=== PATIENT | female | born 1955 | race Caucasian/White ===

== ENCOUNTER → 2017-07-22 | Outpatient (CLI) | payer MEDICARE, OTHER ==
[~2017-07-22] MED LIST: BUPIVACAINE MPF 0.25% 10 ML VIAL. ONE; DEXAMETHASONE SOD PHOS 4 MG/ML VIAL ONE; IV NORMAL SALINE 250ML 250 ML ONE; LIDOCAINE (700MG/PATCH) PATCH. ONE; LIDOCAINE 1% PF 30 ML VIAL. ONE; MIDAZOLAM HCL PF 2 MG/2 ML VIAL. ONE
== END | disposition home or self-care (01) ==
LOC: SURG 10:52
PROVIDERS: ATTEND Anesthesiology
DX: M47.814 Spondylosis without myelopathy or radiculopathy, thoracic region (principal); J45.909 Unspecified asthma, uncomplicated; M19.91 Primary osteoarthritis, unspecified site; E11.22 Type 2 diabetes mellitus with diabetic chronic kidney disease; N18.9 Chronic kidney disease, unspecified; E07.9 Disorder of thyroid, unspecified; Z90.710 Acquired absence of both cervix and uterus; Z88.6 Allergy status to analgesic agent; Z88.1 Allergy status to other antibiotic agents
CPT/HCPCS: 64633; 64634; 82947; J1100; J2001; J2250; J3490; J7050; 64636

== ENCOUNTER → 2017-09-11 | Outpatient (CLI) | payer MEDICARE, OTHER ==
[~2017-09-11] MED LIST changes: +0.9 % SODIUM CHLORIDE 10 ML VIAL ONE; -BUPIVACAINE MPF 0.25% 10 ML VIAL. ONE; -DEXAMETHASONE SOD PHOS 4 MG/ML VIAL ONE; +IOHEXOL 300 MG/ML 50 ML VIAL. ONE; -IV NORMAL SALINE 250ML 250 ML ONE; -LIDOCAINE (700MG/PATCH) PATCH. ONE; -MIDAZOLAM HCL PF 2 MG/2 ML VIAL. ONE; +methylPREDNISolone ACETATE 80 MG/ML VIAL. ONE
== END | disposition home or self-care (01) ==
LOC: SURG 10:49
PROVIDERS: ATTEND Anesthesiology Pain Medicine
DX: M54.14 Radiculopathy, thoracic region (principal)
CPT/HCPCS: 62321; J1040; J2001; Q9967

== ENCOUNTER → 2017-10-23 | Outpatient (CLI) | payer MEDICARE, OTHER | END | disposition home or self-care (01) | LOC: SURG 10:12 | PROVIDERS: ATTEND Anesthesiology Pain Medicine | DX: M47.894 Other spondylosis, thoracic region (principal); R73.09 Other abnormal glucose | CPT/HCPCS: 82947; 99214 ==

== ENCOUNTER → 2017-12-19 | Outpatient (CLI) | payer MEDICARE, OTHER | END | disposition home or self-care (01) | LOC: SURG 08:57 | PROVIDERS: ATTEND Anesthesiology Pain Medicine | DX: M47.24 Other spondylosis with radiculopathy, thoracic region (principal) | CPT/HCPCS: 62321; J1040; J2001; Q9967 ==

== ENCOUNTER → 2018-01-29 | Day surgery (SDC) | payer MEDICARE, OTHER ==
[~2018-01-29] MED LIST changes: -0.9 % SODIUM CHLORIDE 10 ML VIAL ONE; +ALBU18HF IH; +ALBUTEROL SULFATE 2.5 MG/3 ML NEBU. NEB PRN; +ALEN70TA5 PO; +ALPR0.5T PO; +AMIT25TA PO; +ASPI81TA50 PO; +ATOR20TA58 PO; +ATROPINE 0.5 MG/5 ML DISP.SYRIN. IV PRN; +BUDE10.2 IH; +CETI10TA16 PO; +FLUT10.6 IH; +FLUT16SP21 NS; +GLIP10TA13 PO; +INSU100I17 SQ; +INSU100I32 SQ; -IOHEXOL 300 MG/ML 50 ML VIAL. ONE; +IV RINGERS SOLUTION,LACTATED 1,000 ML IV SCH; +LEVO25TA4 PO; -LIDOCAINE 1% PF 30 ML VIAL. ONE; +LIDOCAINE 2% PF Vial for OR 5 ML VIAL. ONE; +MIDAZOLAM HCL PF 2 MG/2 ML VIAL. IV ONE; +MONT10TA6 PO; +NALOXONE 0.4 MG/ML VIAL. IV PRN; +ONDANSETRON PF 4 MG/2 ML VIAL. IV PRN; +PROPOFOL 20 ML IV ONE; +SUMA100T4 PO; +diphenhydrAMINE 50 MG/ML VIAL IV PRN; -methylPREDNISolone ACETATE 80 MG/ML VIAL. ONE
[2018-01-29 09:05] VITALS: BP 132/74
== END | disposition home or self-care (01) ==
LOC: SURG 07:24
PROVIDERS: ATTEND Internal Medicine Gastroenterology
DX: K29.50 Unspecified chronic gastritis without bleeding (principal); K21.9 Gastro-esophageal reflux disease without esophagitis; G47.33 Obstructive sleep apnea (adult) (pediatric); E11.9 Type 2 diabetes mellitus without complications; J45.909 Unspecified asthma, uncomplicated; E78.00 Pure hypercholesterolemia, unspecified; M19.90 Unspecified osteoarthritis, unspecified site; Z88.1 Allergy status to other antibiotic agents; Z88.5 Allergy status to narcotic agent; Z79.899 Other long term (current) drug therapy; Z79.82 Long term (current) use of aspirin; Z90.5 Acquired absence of kidney; Z90.710 Acquired absence of both cervix and uterus; Z98.890 Other specified postprocedural states
CPT/HCPCS: 43239; 82947; J2704; J7120; 43235; J2001

== ENCOUNTER → 2018-02-13 | Outpatient (CLI) | payer MEDICARE, OTHER ==
[2018-01-29 09:05] VITALS: BP 132/74
[~2018-02-13] MED LIST changes: -ALBU18HF IH; -ALBUTEROL SULFATE 2.5 MG/3 ML NEBU. NEB PRN; -ALPR0.5T PO; -AMIT25TA PO; -ASPI81TA50 PO; -ATOR20TA58 PO; -ATROPINE 0.5 MG/5 ML DISP.SYRIN. IV PRN; -FLUT16SP21 NS; -INSU100I32 SQ; -IV RINGERS SOLUTION,LACTATED 1,000 ML IV SCH; -LIDOCAINE 2% PF Vial for OR 5 ML VIAL. ONE; -MIDAZOLAM HCL PF 2 MG/2 ML VIAL. IV ONE; -NALOXONE 0.4 MG/ML VIAL. IV PRN; -ONDANSETRON PF 4 MG/2 ML VIAL. IV PRN; -PROPOFOL 20 ML IV ONE; -SUMA100T4 PO; -diphenhydrAMINE 50 MG/ML VIAL IV PRN
--- NOTE | 2018-02-13 10:42 | RAD ---
Complete abdominal ultrasound 02/13/2018 7:59 AM Clinical History: Intermittent abdominal and epigastric pain x3 weeks . History of right nephrectomy. Technique: Ultrasound examination of the abdomen was performed, and multiple static images were submitted for review. Comparison: None available Findings: Visualized portions of the pancreas are unremarkable. Visualized portions of the aorta and IVC are unremarkable. The gallbladder is partially obscured. Visualized gallbladder demonstrates no evidence of wall thickening, stones, or sludge. The common bile duct is within normal limits measuring 4 mm in diameter. The liver is diffusely echogenic suggesting hepatic steatosis. The liver is top normal in diameter between 17 and 18 cm. Liver is otherwise unremarkable. The left kidney is normal in appearance measuring 12.8 cm in length. Spleen is unremarkable in appearance measuring 9.4 cm in length. Impression: 1. Hepatic steatosis and borderline hepatomegaly. 2. No sonographic evidence of acute intracranial abnormality is identified. Electronically signed by: Ezekiel Mcnair MD (02/13/2018 10:39 AM) [id number]
--- NOTE | 2018-02-13 12:53 | RAD ---
EXAM: Nuclear gastric emptying scan. HISTORY: Epigastric pain and nausea. COMPARISON: None. TECHNIQUE: Serial static images were obtained over the stomach following oral administration of 2.1 mCi of 99m-Tc sulfur colloid. FINDINGS: The stomach empties into the small bowel without evidence of reflux in the area of the esophagus. The estimated time for half emptying of gastric contents, i.e. 'gastric emptying time' is 916 minutes (normal is 66 +/- 22 minutes). IMPRESSION: Severely delayed gastric emptying. Correlate for gastroparesis or outlet obstruction. Electronically signed by: Grace Owens MD (02/13/2018 12:50 PM) [id number]
== END | disposition home or self-care (01) ==
LOC: US 07:34
PROVIDERS: ATTEND Internal Medicine Gastroenterology
DX: K76.0 Fatty (change of) liver, not elsewhere classified (principal); K30 Functional dyspepsia; E11.22 Type 2 diabetes mellitus with diabetic chronic kidney disease; N18.9 Chronic kidney disease, unspecified; E78.00 Pure hypercholesterolemia, unspecified
CPT/HCPCS: 76700; 78264; A9541

== ENCOUNTER → 2018-02-26 | Day surgery (SDC) | payer MEDICARE, OTHER ==
[~2018-02-26] MED LIST changes: +ALBU18HF IH; +ALPR0.5T PO; +AMIT25TA PO; +ASPI81TA50 PO; +ATOR20TA58 PO; +FLUT16SP21 NS; +INSU100I32 SQ; +LIDOCAINE 1% PF 2 ML VIAL. ID PRN; +PROPOFOL 10,000 MCG/ML (20ML) VIAL IV ONE; +PROPOFOL 40 ML IV ONE; +SUMA100T4 PO
[2018-02-26] MEDS: IV RINGERS SOLUTION,LACTATED 1,000 ML IV SCH (10:33)
[2018-02-26 13:07] VITALS: BP 129/61
== END ==
LOC: SURG 09:44
PROVIDERS: ATTEND Internal Medicine Gastroenterology
DX: K59.00 Constipation, unspecified (principal); K57.30 Diverticulosis of large intestine without perforation or abscess without bleeding; K21.9 Gastro-esophageal reflux disease without esophagitis; E11.9 Type 2 diabetes mellitus without complications; E78.00 Pure hypercholesterolemia, unspecified; J45.909 Unspecified asthma, uncomplicated; G47.33 Obstructive sleep apnea (adult) (pediatric); E66.9 Obesity, unspecified; Z68.39 Body mass index [BMI] 39.0-39.9, adult; Z88.6 Allergy status to analgesic agent; Z88.1 Allergy status to other antibiotic agents; Z88.8 Allergy status to other drugs, medicaments and biological substances; Z90.710 Acquired absence of both cervix and uterus; Z98.890 Other specified postprocedural states; Z90.5 Acquired absence of kidney
CPT/HCPCS: 43202; 45378; 82947; J2704; J7120

== ENCOUNTER → 2018-11-17 | Day surgery (SDC) | payer MEDICARE, OTHER ==
[~2018-11-17] MED LIST changes: -ALBU18HF IH; +ALBU2.5V8 IH; +ALBUTEROL SULFATE 2.5 MG/3 ML NEBU. NEB PRN; -ALEN70TA5 PO; +ALEN70TA6 PO; +ATOR40TA59 PO; +ATROPINE 0.5 MG/5 ML DISP.SYRIN. IV PRN; +CELE200C PO; +CHOL10003 PO; +DICL100G18 TP; +DULA0.75 SQ; +ESOM40CA PO; +ESTR0.5T PO; +GLIP5TAB10 PO; +IV RINGERS SOLUTION,LACTATED 1,000 ML IV SCH; -LIDOCAINE 1% PF 2 ML VIAL. ID PRN; +LIDOCAINE 2% PF Vial for OR 5 ML VIAL. ONE; +LIDODERM PATCH 5% TP; +LUBI8CAP4 PO; -MONT10TA6 PO; +MONT10TA80 PO; +MULT1TAB52 PO; +NALOXONE 0.4 MG/ML VIAL. IV PRN; +NAPR220C4 PO; +ONDA4TAB7 PO; +ONDANSETRON PF 4 MG/2 ML VIAL. IV PRN; -PROPOFOL 10,000 MCG/ML (20ML) VIAL IV ONE; +PROPOFOL 20 ML IV ONE; -PROPOFOL 40 ML IV ONE; +ZOLP5TAB PO; +diphenhydrAMINE 50 MG/ML VIAL IV PRN
[2018-11-17 12:56] VITALS: BP 128/75
== END | disposition home or self-care (01) ==
LOC: SURG 10:53
PROVIDERS: ATTEND Internal Medicine Gastroenterology
DX: K22.2 Esophageal obstruction (principal); K31.89 Other diseases of stomach and duodenum; K21.9 Gastro-esophageal reflux disease without esophagitis; E78.00 Pure hypercholesterolemia, unspecified; J45.909 Unspecified asthma, uncomplicated; Z88.5 Allergy status to narcotic agent; Z88.1 Allergy status to other antibiotic agents; Z91.018 Allergy to other foods; Z88.8 Allergy status to other drugs, medicaments and biological substances; Z79.899 Other long term (current) drug therapy; Z79.82 Long term (current) use of aspirin; Z90.5 Acquired absence of kidney; Z90.710 Acquired absence of both cervix and uterus; Z98.890 Other specified postprocedural states; E11.43 Type 2 diabetes mellitus with diabetic autonomic (poly)neuropathy; K31.84 Gastroparesis; Z79.84 Long term (current) use of oral hypoglycemic drugs
CPT/HCPCS: 43239; 82947; J2704; J7120; J2001

== ENCOUNTER → 2018-11-26 | Outpatient (CLI) | payer MEDICARE, OTHER ==
[2018-11-17 12:56] VITALS: BP 128/75
[~2018-11-26] MED LIST changes: -ALBUTEROL SULFATE 2.5 MG/3 ML NEBU. NEB PRN; -ATOR40TA59 PO; -ATROPINE 0.5 MG/5 ML DISP.SYRIN. IV PRN; -CELE200C PO; -CHOL10003 PO; -DICL100G18 TP; -ESOM40CA PO; -ESTR0.5T PO; -GLIP5TAB10 PO; -IV RINGERS SOLUTION,LACTATED 1,000 ML IV SCH; -LIDOCAINE 2% PF Vial for OR 5 ML VIAL. ONE; -LIDODERM PATCH 5% TP; -LUBI8CAP4 PO; +MONT10TA6 PO; -MONT10TA80 PO; -MULT1TAB52 PO; -NALOXONE 0.4 MG/ML VIAL. IV PRN; -NAPR220C4 PO; -ONDANSETRON PF 4 MG/2 ML VIAL. IV PRN; -PROPOFOL 20 ML IV ONE; -diphenhydrAMINE 50 MG/ML VIAL IV PRN
== END | disposition home or self-care (01) ==
LOC: SURG 09:41
PROVIDERS: ATTEND Anesthesiology Pain Medicine
DX: M47.24 Other spondylosis with radiculopathy, thoracic region (principal); M19.90 Unspecified osteoarthritis, unspecified site; I10 Essential (primary) hypertension; E78.00 Pure hypercholesterolemia, unspecified; Z90.710 Acquired absence of both cervix and uterus
CPT/HCPCS: 99213

== ENCOUNTER → 2018-12-11 | Outpatient (CLI) | payer MEDICARE, OTHER ==
[2018-11-17 12:56] VITALS: BP 128/75
--- NOTE | 2018-12-11 14:17 | RAD ---
EXAM: Thoracic spine CT without contrast. HISTORY: Thoracic radiculopathy. TECHNIQUE: Computed tomographic images of the thoracic spine were obtained without contrast. *One or more of the following individualized dose reduction techniques were utilized for this examination: 1. Automated exposure control. 2. Adjustment of the mA and/or kV according to patient size. 3. Use of iterative reconstruction technique. COMPARISON: MRI dated 09/14/2018. FINDINGS: There is mild thoracic dextrocurvature centered at the mid thoracic levels. There is no significant listhesis. The thoracic vertebral bodies are normal in height. There is degenerative endplate remodeling with right anterior osteophytosis at the majority of the mid and lower thoracic vertebral levels. There are few tiny bone islands. There is no suspicious lytic or sclerotic osseous lesion. There are hypoplastic T12 ribs, a normal variant. There are disc bulges at multiple levels. There are few disc protrusions, described below. There is degenerative endplate remodeling with disc space narrowing and Schmorl's node formation at C5-C6, not formally assessed on this exam. There is suspected mild left foraminal stenosis at this level. At T5-T6, there is a minimal shallow left paracentral disc protrusion. There is no stenosis. At T11-T12, there is a posterior central to left paracentral disc protrusion and osteophyte complex with slight inferior extrusion. There is no stenosis. At T12-L1, there is a left paracentral disc protrusion and osteophyte complex. There is no stenosis. IMPRESSION: 1. Multilevel degenerative change within the thoracic spine, described in detail above. There is no significant foraminal or central canal stenosis. 2. No acute finding. Electronically signed by: Grace Owens MD (12/11/2018 2:15 PM) [place] [id number]
== END | disposition home or self-care (01) ==
LOC: CT 11:51
PROVIDERS: ATTEND Neurological Surgery
DX: M47.24 Other spondylosis with radiculopathy, thoracic region (principal); M25.78 Osteophyte, vertebrae; M51.25 Other intervertebral disc displacement, thoracolumbar region; M48.02 Spinal stenosis, cervical region
CPT/HCPCS: 72128

== ENCOUNTER → 2019-01-01 | Outpatient (CLI) | payer MEDICARE, OTHER ==
[2018-11-17 12:56] VITALS: BP 128/75
== END | disposition home or self-care (01) ==
LOC: SURG 11:41
PROVIDERS: ATTEND Anesthesiology Pain Medicine
DX: M47.814 Spondylosis without myelopathy or radiculopathy, thoracic region (principal); M19.90 Unspecified osteoarthritis, unspecified site; I10 Essential (primary) hypertension; E78.00 Pure hypercholesterolemia, unspecified; Z90.710 Acquired absence of both cervix and uterus; Z79.899 Other long term (current) drug therapy
CPT/HCPCS: 99213

== ENCOUNTER 2019-03-17 20:53 | Inpatient (IN) | payer MEDICARE, OTHER ==
[~2019-03-17] VITALS: Ht 149.9 cm; Wt 83.9 kg
[~2019-03-17 20:53] MED LIST changes: -MONT10TA6 PO; +MONT10TA80 PO
[2019-03-17] MEDS ORDERED: IV RINGERS SOLUTION,LACTATED 1,000 ML IV SCH (21:36)
--- NOTE | 2019-03-17 21:36 | ED.ADGEN ---
Past History Past Medical History: Anxiety, Arthritis, Constipation, Diverticulitis, Diabetes, High Cholesterol, Hypertension, Other Past Medical History Chronic Pain Past Surgical History: Lumbar Laminectomy, Other Adult General Chief Complaint Chief Complaint ".. I was here earlier.. and I am no better.. I called and nursing told be to come back in .. .if I was not feeling better...and I am not..." HPI HPI 63 Patient is a 64 year old female who presents with above hx and continue abdomen pain. Patient denies any travel. Patient denies any specific ill contacts. Patient denies any intake bad food. Patient denies any change in her medications. Patient pain is generalized throughout her abdomen. Patient states she's has been passing gas and stool. Patient rates her pain as severe. She does seems to make the pain better. Patient previously had completed CT of abdomen no surgical pathology noted. On earlier ED visit was noted to have increased stool throughout her colon. Patient does have findings of diverticulitis but noted diverticulitis. She does have degenerative joint changes in the spine and joints She does have findings of subpleural linear reticular scarring or atelectasis in her lungs. She does have findings of previous lumbar fixation. Patient normally follows Dr. Gloria.. Patient has not remained on a clear fluid diet. Review of Systems Review of Systems Constitutional: Denies fever or chills [] Eyes: Denies change in visual acuity, redness, or eye pain [] HENT: Denies nasal congestion or sore throat [] Respiratory: Denies cough or shortness of breath [] Cardiovascular: No additional information not addressed in HPI [] GI: Complaints of severe generalized abdominal pain., nausea. Denies, vomiting, bloody stools or diarrhea [] : Denies dysuria or hematuria [] Musculoskeletal: Has chronic back pain and joint pain [] Integument: Denies rash or skin lesions [] Neurologic: Denies headache, focal weakness or sensory changes [] Endocrine: Denies polyuria or polydipsia [] All other systems were reviewed and found to be within normal limits, except as documented in this note. Family History Family History Diabetes hypertension noncontributory Current Medications Current Medications Current Medications Medications (Trade) Dose Ordered Sig/Jackson Start Time Stop Time Status Last Admin Dose Admin Famotidine (Pepcid Vial) 20 mg 1X ONCE 03/17/19 21:45 03/17/19 21:46 DC 03/17/19 21:53 20 MG Fentanyl Citrate (Fentanyl 2ml Vial) 100 mcg 1X ONCE 03/17/19 23:15 03/17/19 23:43 DC 03/17/19 23:16 100 MCG Lactated Ringer's 1,000 ml @ 1,000 mls/hr Q1H 03/17/19 21:36 03/17/19 22:35 DC 03/17/19 21:52 1,000 MLS/HR Magnesium Hydroxide (Milk Of Magnesia) 2,400 mg 1X ONCE 03/17/19 21:45 03/17/19 21:46 DC 03/17/19 21:53 2,400 MG Ondansetron HCl (Zofran) 8 mg 1X ONCE 03/17/19 21:45 03/17/19 21:46 DC 03/17/19 21:53 8 MG Allergies Allergies Allergies Coded Allergies Type Severity Reaction Last Updated Verified erythromycin base Allergy Intermediate 03/17/19 Yes hydromorphone Allergy Unknown 03/17/19 Yes morphine Allergy Unknown 03/17/19 Yes Physical Exam Physical Exam Constitutional: Reports she is in acute distress, non-toxic appearance. [] HENT: Normocephalic, atraumatic, bilateral external ears normal, oropharynx mois t, no oral exudates, nose normal. [] Eyes: PERRLA, EOMI, conjunctiva normal, no discharge. [] Neck: Normal range of motion, no tenderness, supple, no stridor. [] Cardiovascular: Bradycardia Heart rate regular rhythm, no murmur [] Lungs & Thorax: Bilateral breath sounds equal apexes with basilar crackles on auscultation [] Abdomen: Bowel sounds normal, soft, complaints of generalized tenderness, no ma sses, no pulsatile masses. No true localization on rebound. Morbid obesity. Distended abd. Skin: Warm, dry, no erythema, no rash. [] Back: No tenderness, no CVA tenderness. [] Old surgery scar Extremities: No tenderness, no cyanosis, no clubbing, ROM intact, ankle edema. [] No psoas sign Neurologic: Alert and oriented X 3, normal motor function, normal sensory function, no focal deficits noted. [] Psychologic: Affect anxious, judgement normal, mood depressed Current Patient Data Vital Signs Vital Signs Date Time Temp Pulse Resp B/P (MAP) Pulse Ox O2 Delivery O2 Flow Rate FiO2 03/17/19 23:16 24 98 Room Air 03/17/19 21:00 97.9 65 Lab Results Laboratory Tests Test 03/17/19 21:12 03/17/19 21:50 White Blood Count 11.1 x10^3/uL (4.0-11.0) H Red Blood Count 4.98 x10^6/uL (3.50-5.40) Hemoglobin 14.4 g/dL (12.0-15.5) Hematocrit 45.0 % (36.0-47.0) Mean Corpuscular Volume 90 fL (79-100) Mean Corpuscular Hemoglobin 29 pg (25-35) Mean Corpuscular Hemoglobin Concent 32 g/dL (31-37) Red Cell Distribution Width 13.8 % (11.5-14.5) Platelet Count 220 x10^3/uL (140-400) Neutrophils (%) (Auto) 66 % (31-73) Lymphocytes (%) (Auto) 24 % (24-48) Monocytes (%) (Auto) 7 % (0-9) Eosinophils (%) (Auto) 2 % (0-3) Basophils (%) (Auto) 1 % (0-3) Neutrophils # (Auto) 7.3 x10^3uL (1.8-7.7) Lymphocytes # (Auto) 2.7 x10^3/uL (1.0-4.8) Monocytes # (Auto) 0.7 x10^3/uL (0.0-1.1) Eosinophils # (Auto) 0.2 x10^3/uL (0.0-0.7) Basophils # (Auto) 0.1 x10^3/uL (0.0-0.2) Erythrocyte Sedimentation Rate 25 (0-25) Troponin I Quantitative < 0.017 ng/mL (0-0.055) Urine Collection Type Unknown Urine Color [place] Urine Clarity Hazy Urine pH 6.5 Urine Specific [place] 1.010 Urine Protein Neg (NEG-TRACE) Urine Glucose (UA) Neg mg/dL (NEG) Urine Ketones (Stick) Neg mg/dL (NEG) Urine Blood Neg (NEG) Urine Nitrite Neg (NEG) Urine Bilirubin Neg (NEG) Urine Urobilinogen Dipstick 0.2 mg/dL (0.2 mg/dL) Urine Leukocyte Esterase Neg (NEG) Urine RBC 0 /HPF (0-2) Urine WBC 0 /HPF (0-4) Urine Squamous Epithelial Cells Occ /LPF Urine Bacteria 0 /HPF (0-FEW) Urine Opiates Screen Neg (NEG) Urine Methadone Screen Neg (NEG) Urine Barbiturates Neg (NEG) Urine Phencyclidine Screen Neg (NEG) Urine Amphetamine/Methamphetamine Neg (NEG) Urine Benzodiazepines Screen Neg (NEG) Urine Cocaine Screen Neg (NEG) Urine Cannabinoids Screen Neg (NEG) Urine Ethyl Alcohol Neg (NEG) EKG EKG My interpretation EKG shows sinus rhythm at 64 bpm. No specific findings of acute STEMI with contralateral changes.[] Radiology/Procedures Radiology/Procedures I interpretation acute abdomen film shows[] increased stool throughout the colon. Does have residual contrast. There are findings of previous laminectomy. No free air under the diaphragm. Course & Med Decision Making Course & Med Decision Making Pertinent Labs and Imaging studies reviewed. (See chart for details) Patient admitted for further evaluation since she's been in the ED twice in less than 12 hours. Reports no improvement of her overall pain. Do suspect part of her pain is due to constipation. There is possibility of a missed surgical e tiology, she does have findings of diverticular disease but no findings of diverticulitis. Patient does have findings of degenerative joint changes and spinal stenosis. Has pulmonary linear reticular scarring and atelectasis. All of these could contribute to her abdomen pain complaints. Will keep pt. on clear fluid diet. Admission to Dr. Ham for further eval. and tx. [] Final Impression Final Impression 1. Abdomen pain[] ( Second visit to ED in less than 12 hrs.) 2. Leukocytosis 11.1 3. Constipation 4. Morbid Obesity 5. DM glu 120 Dragon Disclaimer Dragon Disclaimer This electronic medical record was generated, in whole or in part, using a voice recognition dictation system. Discharge Summary Visit Information Final Diagnosis Problems Medical Problems: (1) Pain in the abdomen Status: Acute Brief Hospital Course Allergies Allergies Coded Allergies Type Severity Reaction Last Updated Verified erythromycin base Allergy Intermediate 03/17/19 Yes hydromorphone Allergy Unknown 03/17/19 Yes morphine Allergy Unknown 03/17/19 Yes Vital Signs Vital Signs Date Time Temp Pulse Resp B/P (MAP) Pulse Ox O2 Delivery O2 Flow Rate FiO2 03/17/19 23:16 24 98 Room Air 03/17/19 21:00 97.9 65 Lab Results Laboratory Tests Test 03/17/19 21:12 03/17/19 21:50 White Blood Count 11.1 x10^3/uL (4.0-11.0) Red Blood Count 4.98 x10^6/uL (3.50-5.40) Hemoglobin 14.4 g/dL (12.0-15.5) Hematocrit 45.0 % (36.0-47.0) Mean Corpuscular Volume 90 fL (79-100) Mean Corpuscular Hemoglobin 29 pg (25-35) Mean Corpuscular Hemoglobin Concent 32 g/dL (31-37) Red Cell Distribution Width 13.8 % (11.5-14.5) Platelet Count 220 x10^3/uL (140-400) Neutrophils (%) (Auto) 66 % (31-73) Lymphocytes (%) (Auto) 24 % (24-48) Monocytes (%) (Auto) 7 % (0-9) Eosinophils (%) (Auto) 2 % (0-3) Basophils (%) (Auto) 1 % (0-3) Neutrophils # (Auto) 7.3 x10^3uL (1.8-7.7) Lymphocytes # (Auto) 2.7 x10^3/uL (1.0-4.8) Monocytes # (Auto) 0.7 x10^3/uL (0.0-1.1) Eosinophils # (Auto) 0.2 x10^3/uL (0.0-0.7) Basophils # (Auto) 0.1 x10^3/uL (0.0-0.2) Erythrocyte Sedimentation Rate 25 (0-25) Troponin I Quantitative < 0.017 ng/mL (0-0.055) Urine Collection Type Unknown Urine Color Marixa Urine Clarity Hazy Urine pH 6.5 Urine Specific [place] 1.010 Urine Protein Neg (NEG-TRACE) Urine Glucose (UA) Neg mg/dL (NEG) Urine Ketones (Stick) Neg mg/dL (NEG) Urine Blood Neg (NEG) Urine Nitrite Neg (NEG) Urine Bilirubin Neg (NEG) Urine Urobilinogen Dipstick 0.2 mg/dL (0.2 mg/dL) Urine Leukocyte Esterase Neg (NEG) Urine RBC 0 /HPF (0-2) Urine WBC 0 /HPF (0-4) Urine Squamous Epithelial Cells Occ /LPF Urine Bacteria 0 /HPF (0-FEW) Urine Opiates Screen Neg (NEG) Urine Methadone Screen Neg (NEG) Urine Barbiturates Neg (NEG) Urine Phencyclidine Screen Neg (NEG) Urine Amphetamine/Methamphetamine Neg (NEG) Urine Benzodiazepines Screen Neg (NEG) Urine Cocaine Screen Neg (NEG) Urine Cannabinoids Screen Neg (NEG) Urine Ethyl Alcohol Neg (NEG) Brief Hospital Course Ms. Lilly is a 64 old female who presented with abdomen pain that has not resolved with out pt. management. Admitted Dr. Ham. Discharge Information Condition at Discharge: Stable Dischare Medications Current Medications Lactated Ringer's 1,000 ml @ 1,000 mls/hr Q1H IV Last administered on 03/17/19at 21:52; Admin Dose 1,000 MLS/HR; Start 03/17/19 at 21:36; Stop 03/17/19 at 22:35; Status DC Ondansetron HCl (Zofran) 8 mg 1X ONCE IV Last administered on 03/17/19at 21:53; Admin Dose 8 MG; Start 03/17/19 at 21:45; Stop 03/17/19 at 21:46; Status DC Famotidine (Pepcid Vial) 20 mg 1X ONCE IVP Last administered on 03/17/19at 21:53; Admin Dose 20 MG; Start 03/17/19 at 21:45; Stop 03/17/19 at 21:46; Status DC Magnesium Hydroxide (Milk Of Magnesia) 2,400 mg 1X ONCE PO Last administered on 03/17/19at 21:53; Admin Dose 2,400 MG; Start 03/17/19 at 21:45; Stop 03/17/19 at 21:46; Status DC Fentanyl Citrate (Fentanyl 2ml Vial) 100 mcg 1X ONCE IM Last administered on 03/17/19at 23:16; Admin Dose 100 MCG; Start 03/17/19 at 23:15; Stop 03/17/19 at 23:43; Status DC Active Scripts Active Reported Zofran (Ondansetron Hcl) 4 Mg Tablet 1 Tab PO Q6HRS Ambien (Zolpidem Tartrate) 5 Mg Tablet 5 Mg PO PRN QHS PRN Trulicity (Dulaglutide) 0.75 Mg/0.5 Ml Pen.injctr 0.75 Mg SQ WEEKLY Atorvastatin Calcium 20 Mg Tablet 1 Tab PO DAILY Amitriptyline Hcl 25 Mg Tablet 1 Tab PO QHS Sumatriptan Succinate 100 Mg Tablet 100 Mg PO PRN Sumatriptan Succinate 100 Mg Tablet 1 Tab PO UD Ventolin Hfa Inhaler (Albuterol Sulfate) 18 Gm Hfa.aer.ad 2 Puff IH PRN Q4HRS PRN Xanax (Alprazolam) 0.5 Mg Tablet 1 Tab PO DAILY Aspir-Low (Aspirin) 81 Mg Tablet.dr 1 Tab PO DAILY Fluticasone Propionate Nasal [place] (Fluticasone Propionate) 16 Gm [place].susp 2 Spr NS DAILY Flovent 44MCG Hfa (Fluticasone Propionate) 10.6 Gm Aer.w.adap 2 Puff IH BID Alendronate Sodium 70 Mg Tablet 1 Tab PO WEEKLY Cetirizine Hcl 10 Mg Tablet 1 Tab PO DAILY Symbicort 160-4.5 Mcg Inhaler (Budesonide/Formoterol Fumarate) 10.2 Gm Hfa.aer.ad 2 Puff IH BID Singulair Tablet (Montelukast Sodium) 10 Mg Tablet 1 Tab PO DAILY Levothyroxine Sodium 25 Mcg Tablet 1 Tab PO DAILY Glipizide 10 Mg Tablet 10 Mg PO DAILY Dionte Disclaimer This chart was dictated in whole or in part using Voice Recognition software in a busy, high-work load, and often noisy Emergency Department environment. It may contain unintended and wholly unrecognized errors or omissions. GARRETT LOCO MD Mar 17, 2019 21:36
[2019-03-17] MEDS ORDERED: ONDANSETRON PF 4 MG/2 ML VIAL. IV ONE (21:45)
[2019-03-17] MEDS ORDERED: FAMOTIDINE 20 MG/2 ML VIAL IVP ONE (21:45)
[2019-03-17] MEDS ORDERED: MAGNESIUM HYDROXIDE 2,400 MG/30 ML ORAL.SUSP. PO ONE (21:45)
[2019-03-17 21:48] LABS: BASO # 0.1 x10^3/uL (0.0-0.2); BASO % 1 % (0-3); EOS # 0.2 x10^3/uL (0.0-0.7); EOS % 2 % (0-3); HEMOGLOBIN 14.4 g/dL (12.0-15.5); LYMPH # 2.7 x10^3/uL (1.0-4.8); LYMPH % 24 % (24-48); MEAN CORPUSCULAR HEMOGLOBIN 29 pg (25-35); MEAN CORPUSCULAR HGB CONC 32 g/dL (31-37); MEAN CORPUSCULAR VOLUME 90 fL (79-100); MONO # 0.7 x10^3/uL (0.0-1.1); MONO % 7 % (0-9); NEUT # 7.3 x10^3uL (1.8-7.7); NEUT % 66 % (31-73); PLATELET COUNT 220 x10^3/uL (140-400); RED BLOOD COUNT 4.98 x10^6/uL (3.50-5.40); RED CELL DISTRIBUTION WIDTH 13.8 % (11.5-14.5); WHITE BLOOD COUNT 11.1 x10^3/uL (4.0-11.0)
[2019-03-17 22:20] LABS: BARBITURATES NEG (NEG); BENZODIAZEPINES NEG (NEG); CANNABINOIDS NEG (NEG); COCAINE NEG (NEG); METHADONE NEG (NEG); OPIATES NEG (NEG); PHENCYCLIDINE NEG (NEG)
[2019-03-17 22:21] LABS: AMPHETAMINE/METHAMPHETAMINE NEG (NEG)
[2019-03-17 22:24] LABS: BACTERIA,URINE 0 /HPF (0-FEW); BILIRUBIN,URINE NEG (NEG); CLARITY,URINE HAZY; COLOR,URINE AMBER; GLUCOSE,URINE NEG (NEG); NITRITE,URINE NEG (NEG); RBC,URINE 0 /HPF (0-2); SQUAMOUS EPITHELIAL CELL,UR OCC /LPF; UROBILINOGEN,URINE 0.2 mg/dL (0.2 mg/dL); WBC,URINE 0 /HPF (0-4)
[2019-03-17 22:51] LABS: SEDIMENTATION RATE 25 (0-25)
[2019-03-18] MEDS ORDERED: ONDANSETRON PF 4 MG/2 ML VIAL. IV PRN (00:30)
[2019-03-18] MEDS: IV RINGERS SOLUTION,LACTATED 1,000 ML IV SCH ×5 (01:19→20:40)
--- NOTE | 2019-03-18 01:29 | EKG ---
[address] [address] Test Date: 2019-03-17 Test Time: 22:06:01 Pat Name: LEXI JJ Department: Room: Gender: F [employer] Server: : [id number] Requested By: GARRETT LOCO Order Number: [id number] Reading MD: Measurements Intervals Reynolds Rate: 64 P: 39 NC: 164 QRS: 14 QRSD: 76 T: 39 QT: 428 QTc: 446 Interpretive Statements SINUS RHYTHM NO SPECIFIC ECG ABNORMALITIES RI6.01 No previous ECG available for comparison
[2019-03-18] MEDS: KETOROLAC 30 MG/ML VIAL. IV PRN ×2 (01:53→21:30)
[2019-03-18 02:14] LABS: ALBUMIN 3.6 g/dL (3.4-5.0); CALCIUM 9.4 mg/dL (8.5-10.1); DIRECT BILIRUBIN 0.1 mg/dL (0.0-0.2); POTASSIUM 3.9 mmol/L (3.5-5.1); TOTAL BILIRUBIN 0.6 mg/dL (0.2-1.0); TOTAL PROTEIN 6.9 g/dL (6.4-8.2)
--- NOTE | 2019-03-18 02:18 | RAD ---
Acute abdominal series with PA chest: Reason for examination: Right flank pain. The heart size is normal. Mediastinum is unremarkable. Lung winters are clear. No acute bony abnormalities are seen present. There is no gross organomegaly. Psoas muscles are symmetric. The bowel gas pattern is nonspecific with some contrast present in the right colon. No bowel obstruction is seen. No abnormal calcifications are identified. Postop changes are seen in the lumbosacral spine. No acute bony abnormalities are evident. IMPRESSION: No acute cardiopulmonary disease. Nonspecific bowel gas pattern with no apparent obstruction. Postop changes in the spine. Electronically signed by: Lorraine Peacock MD (03/18/2019 2:15 AM) [facility]
[2019-03-18 03:29] VITALS: BP 147/83
[2019-03-18] MEDS ORDERED: ATOR40TA59 PO (03:47)
[2019-03-18] MEDS ORDERED: INSU100I32 SQ ×2 (03:47)
[2019-03-18] MEDS ORDERED: INSU100I17 SQ (03:47)
[2019-03-18] MEDS ORDERED: LUBI8CAP4 PO (03:49)
[2019-03-18] MEDS ORDERED: CELE200C PO (04:34)
[2019-03-18] MEDS ORDERED: DICL100G18 TP (04:34)
[2019-03-18] MEDS ORDERED: MULT1TAB52 PO (04:34)
[2019-03-18] MEDS ORDERED: LIDODERM PATCH 5% TP (04:34)
[2019-03-18] MEDS ORDERED: ESOM40CA PO (04:34)
[2019-03-18] MEDS ORDERED: GLIP5TAB10 PO (04:34)
[2019-03-18] MEDS ORDERED: ESTR0.5T PO (04:34)
[2019-03-18] MEDS ORDERED: CHOL10003 PO (04:34)
[2019-03-18] MEDS ORDERED: NAPR220C4 PO (04:34)
[2019-03-18 06:26] VITALS: BP 124/74
[2019-03-18 07:02] LABS: BASO % 1 % (0-3); EOS # 0.2 x10^3/uL (0.0-0.7); EOS % 3 % (0-3); HEMATOCRIT 37.6 % (36.0-47.0); HEMOGLOBIN 12.6 g/dL (12.0-15.5); LYMPH # 1.9 x10^3/uL (1.0-4.8); LYMPH % 27 % (24-48); MEAN CORPUSCULAR HEMOGLOBIN 29 pg (25-35); MEAN CORPUSCULAR HGB CONC 34 g/dL (31-37); MEAN CORPUSCULAR VOLUME 86 fL (79-100); MONO # 0.4 x10^3/uL (0.0-1.1); MONO % 5 % (0-9); NEUT # 4.6 x10^3uL (1.8-7.7); NEUT % 64 % (31-73); PLATELET COUNT 255 x10^3/uL (140-400); RED BLOOD COUNT 4.36 x10^6/uL (3.50-5.40); RED CELL DISTRIBUTION WIDTH 13.4 % (11.5-14.5); WHITE BLOOD COUNT 7.1 x10^3/uL (4.0-11.0)
[2019-03-18 07:20] LABS: CALCIUM 8.9 mg/dL (8.5-10.1); POTASSIUM 4.4 mmol/L (3.5-5.1)
[2019-03-18] MEDS ORDERED: ALBUTEROL SULFATE 2.5 MG/3 ML NEBU. NEB PRN (07:30)
[2019-03-18] MEDS ORDERED: DICLOFENAC SODIUM 1% TOPICAL GEL 100GM TUBE. TP PRN (07:30)
[2019-03-18] MEDS ORDERED: METHYLNALTREXONE 12 MG/0.6 ML VIAL. SQ ONE (07:30)
[2019-03-18] MEDS ORDERED: ALPRAZolam 0.5 MG TABLET PO PRN (07:30)
[2019-03-18] MEDS ORDERED: ZOLPIDEM 5 MG TABLET. PO PRN (07:30)
[2019-03-18] MEDS: INSULIN GLARGINE 300 UNITS/3 ML INSULN.PEN. SQ SCH ×2 (08:00→21:00)
[2019-03-18] MEDS: INSULIN LISPRO 300 UNITS/3 ML INSULN.PEN. SQ SCH ×3 (08:00→17:00)
[2019-03-18] MEDS: IPRATRPIUM/ALBUTEROL 0.5/2.5MG 3 ML NEBU. NEB SCH ×4 (08:00→20:12)
[2019-03-18] MEDS ORDERED: ONDANSETRON ODT 4 MG TAB.RAPDIS PO PRN (08:00)
[2019-03-18] MEDS ORDERED: SUMAtriptan SUCCINATE 50 MG TABLET PO PRN (08:00)
[2019-03-18] MEDS: DOCUSATE SODIUM 100 MG CAPSULE PO SCH ×2 (09:00→21:32)
[2019-03-18] MEDS ORDERED: ESTRADIOL 1 MG TABLET PO SCH (09:00)
[2019-03-18] MEDS: NON FORMULARY ITEM (Lubiprostone (Amitiza) 8 MCG) PO SCH ×2 (09:00→20:32)
[2019-03-18] MEDS ORDERED: CETIRIZINE HCL 10 MG TABLET PO SCH (09:00)
[2019-03-18] MEDS: PANTOPRAZOLE 40 MG TABLET. PO SCH ×2 (09:10→21:32)
[2019-03-18] MEDS: ASPIRIN ENTERIC COATED 81 MG TABLET.DR. PO SCH (09:10)
[2019-03-18] MEDS: CELECOXIB 100 MG CAPSULE PO SCH (09:10)
[2019-03-18] MEDS: POLYETHYLENE GLYCOL 3350 17 GM PACKET. PO SCH ×2 (09:11→21:33)
[2019-03-18] MEDS: FAMOTIDINE 20 MG TABLET PO SCH ×2 (09:11→21:32)
[2019-03-18] MEDS: MULTIVITAMIN with MINERAL TABLET. PO SCH (09:11)
[2019-03-18] MEDS: LIDOCAINE (700MG/PATCH) PATCH. TD SCH (09:11)
[2019-03-18 11:08] VITALS: BP 138/74
--- NOTE | 2019-03-18 11:54 | HP ---
ADMIT DATE: 03/17/2019 HISTORY OF PRESENT ILLNESS: This 64-year-old female came in with severe right upper quadrant pain. The patient came in through the Emergency Room and noted she had not been eating anything abnormal. The patient has been having bowel movements. Recent CT scan was in the last 24 hours, showed negative except for constipation. She also complains of severe lumbar pain, but because of the abdominal pain, which she rated at 9/10, the patient was admitted to the hospital for further evaluation and treatment, IV fluids and so forth. PAST MEDICAL AND SURGICAL HISTORY: Headache, hypercholesterolemia, asthma, diverticulosis, endoscopy, colonoscopy, gastroparesis, obesity, hysterectomy, osteoporosis, right total knee replacement, back problems, diabetes, hypothyroidism, anxiety, surgery for right kidney removed and sleep difficulties. The patient has a history of dementia, arrhythmias and lumbar laminectomy. FAMILY HISTORY: Unremarkable. SOCIAL HISTORY: No smoking, alcohol or drug use. REVIEW OF SYSTEMS: The patient denies any headaches, visual change or blurred vision. Denies chest pain or shortness of breath. Does have lower back pain, abdominal pain in the right mid quadrant area that shoots right to her back. The patient denies any problems with bowels or bladder. Neurologically stable. MEDICATIONS: See those that have been reconciled. ALLERGIES: The patient has allergy to ERYTHROMYCIN, HYDROMORPHONE, and MORPHINE. CODE STATUS: Full code. PHYSICAL EXAMINATION: GENERAL: The patient on exam is a pleasant white female in moderate amount of pain. VITAL SIGNS: Blood pressure 140/80, respiratory rate 20, pulse 70 and afebrile. HEENT: The patient's head was atraumatic, normocephalic. Eyes, PERRL without jaundice. Mouth and throat were normal. NECK: Supple. LUNGS: Diminished, but clear. CARDIOVASCULAR: Regular sinus rhythm. ABDOMEN: Soft. Definite tenderness in her right mid quadrant area. Some guarding, but no rebounding. Positive bowel sounds. No hepatosplenomegaly was noted. EXTREMITIES: No clubbing, cyanosis, or edema. NEUROLOGIC: The patient was alert and oriented x 3. LABORATORY DATA: Show white count slightly elevated at 11,000. Differential good. Chemistries basically all within normal limits. Lipase was negative. Blood sugar 120. Sodium and potassium normal. Urine was clear. Drug screen negative. For whatever reason they did beta hCG, was negative. IMPRESSION: Right upper quadrant pain and type 2 diabetes. PLAN: The patient will be admitted, placed on IV fluids, abdominal ultrasound and make further evaluation on her as indicated. PATY SMALL MD DR: NORMA/bhumika JOB#: [id number] / [id number]
--- NOTE | 2019-03-18 12:13 | RAD ---
Abdominal ultrasound, 03/18/2019: HISTORY: Right upper quadrant pain The gallbladder is within normal limits in size. There are couple of tiny echogenic foci along the posterior wall of the gallbladder with faint posterior acoustic shadows. The appearance is that of tiny calculi. The gallbladder salmon are not thickened. The common hepatic duct is of normal caliber. No hepatic abnormality is seen. The spleen is of normal size. The left kidney is unremarkable unremarkable. There is surgical absence of the right kidney. The visualized portions of the pancreatic body are unremarkable. Other portions of the pancreas were obscured by overlying bowel. The abdominal aorta and inferior vena cava are unremarkable. No free fluid is evident in the abdomen. IMPRESSION: 1. Cholelithiasis. 2. Surgical absence of the right kidney. Electronically signed by: Jesse Quiroga MD (03/18/2019 12:10 PM) [facility]
[2019-03-18 14:47] VITALS: BP 133/67
[2019-03-18] MEDS: HEPARIN for SUB-Q USE 5,000 UNIT/ML VIAL. SQ SCH ×2 (14:53→21:45)
[2019-03-18 20:27] VITALS: BP 139/73
[2019-03-18] MEDS: CETIRIZINE HCL 10 MG TABLET PO SCH (21:31)
[2019-03-18] MEDS: ATORVASTATIN CALCIUM 20 MG TABLET PO SCH (21:31)
[2019-03-18] MEDS: ESTRADIOL 1 MG TABLET PO SCH (21:32)
[2019-03-18] MEDS: MONTELUKAST 10 MG TABLET. PO SCH (21:32)
[2019-03-18] MEDS: LEVOTHYROXINE 25 MCG TABLET. PO SCH (21:32)
[2019-03-18] MEDS: glipiZIDE 5 MG TABLET PO SCH (21:32)
[2019-03-18] MEDS: AMITRIPTYLINE HCL 25 MG TABLET PO SCH (21:32)
[2019-03-18 23:42] VITALS: BP 129/67
[2019-03-19] MEDS: IV RINGERS SOLUTION,LACTATED 1,000 ML IV SCH ×5 (01:30→22:05)
[2019-03-19 05:25] VITALS: BP 115/68
[2019-03-19] MEDS: HEPARIN for SUB-Q USE 5,000 UNIT/ML VIAL. SQ SCH ×3 (06:29→21:13)
[2019-03-19] MEDS: KETOROLAC 30 MG/ML VIAL. IV PRN ×2 (06:35→19:13)
[2019-03-19] MEDS: INSULIN LISPRO 300 UNITS/3 ML INSULN.PEN. SQ SCH ×3 (08:00→17:00)
[2019-03-19] MEDS: INSULIN GLARGINE 300 UNITS/3 ML INSULN.PEN. SQ SCH ×2 (08:00→21:00)
[2019-03-19] MEDS: ASPIRIN ENTERIC COATED 81 MG TABLET.DR. PO SCH (08:00)
--- NOTE | 2019-03-19 08:04 | PN ---
DATE: SUBJECTIVE: She is resting fairly comfortably, although complaining of right upper quadrant pain and severe problem last night. Abdominal sonogram shows cholelithiasis. We will do PET scan today to confirm that may need surgery to remove her gallbladder. Other than that, the patient is resting fairly comfortably. OBJECTIVE: VITAL SIGNS: Stable. Blood pressure 115/70, respiratory rate 18, pulse 96, afebrile. LUNGS: Diminished, but clear. CARDIOVASCULAR: Regular sinus rhythm, S1 and S2. ABDOMEN: Soft, except for the right upper quadrant area shows a great deal of pain. PLAN: We will continue to monitor the patient accordingly and make further evaluation on her as indicated. PATY SMALL MD DR: NORMA/bhumika JOB#: [id number] / [id number]
[2019-03-19] MEDS: PANTOPRAZOLE 40 MG TABLET. PO SCH ×2 (09:00→13:34)
[2019-03-19] MEDS: LIDOCAINE (700MG/PATCH) PATCH. TD SCH ×2 (09:00→13:35)
[2019-03-19] MEDS: DOCUSATE SODIUM 100 MG CAPSULE PO SCH ×2 (09:00→13:34)
[2019-03-19] MEDS: MULTIVITAMIN with MINERAL TABLET. PO SCH ×2 (09:00→13:34)
[2019-03-19] MEDS: LUBIPROSTONE 8 MCG CAPSULE PO SCH ×2 (09:00→16:08)
[2019-03-19] MEDS: FAMOTIDINE 20 MG TABLET PO SCH ×2 (09:00→13:34)
[2019-03-19] MEDS: CELECOXIB 100 MG CAPSULE PO SCH ×2 (09:00→13:34)
[2019-03-19] MEDS: POLYETHYLENE GLYCOL 3350 17 GM PACKET. PO SCH ×2 (09:00→21:00)
--- NOTE | 2019-03-19 13:16 | RAD ---
Radionuclide hepatobiliary scan, 03/19/2019: HISTORY: Abdominal pain Following IV injection of 5.0 mCi of technetium 99m Choletec there was prompt uptake of the radionuclide from the blood stream by the liver. Activity is present in the bile ducts at 10 minutes and in the gallbladder at 20 minutes. Over the first hour there is increasing activity in the gallbladder without extension into the small bowel. A delayed image obtained at 2 hours does show extension of activity into the small bowel. IMPRESSION: Normal radionuclide hepatobiliary scan without evidence of cystic duct or common bile duct obstruction. Electronically signed by: Jesse Quiroga MD (03/19/2019 1:13 PM) [facility]
[2019-03-19 15:30] VITALS: BP 135/81
[2019-03-19 19:09] VITALS: BP 145/78
[2019-03-19] MEDS: CETIRIZINE HCL 10 MG TABLET PO SCH (20:58)
[2019-03-19] MEDS: ATORVASTATIN CALCIUM 20 MG TABLET PO SCH (20:58)
[2019-03-19] MEDS: ESTRADIOL 1 MG TABLET PO SCH (20:59)
[2019-03-19] MEDS: LEVOTHYROXINE 25 MCG TABLET. PO SCH (21:01)
[2019-03-19] MEDS: MONTELUKAST 10 MG TABLET. PO SCH (21:01)
[2019-03-19] MEDS: glipiZIDE 5 MG TABLET PO SCH (21:02)
[2019-03-19] MEDS: AMITRIPTYLINE HCL 25 MG TABLET PO SCH (21:05)
[2019-03-19 23:17] VITALS: BP 138/74
[2019-03-20] MEDS: IV RINGERS SOLUTION,LACTATED 1,000 ML IV SCH ×2 (03:21→09:19)
[2019-03-20 05:55] VITALS: BP 111/62
[2019-03-20] MEDS: HEPARIN for SUB-Q USE 5,000 UNIT/ML VIAL. SQ SCH (05:58)
[2019-03-20] MEDS: INSULIN LISPRO 300 UNITS/3 ML INSULN.PEN. SQ SCH (08:00)
[2019-03-20] MEDS: LUBIPROSTONE 8 MCG CAPSULE PO SCH (08:00)
[2019-03-20] MEDS: INSULIN GLARGINE 300 UNITS/3 ML INSULN.PEN. SQ SCH (08:00)
[2019-03-20] MEDS: ASPIRIN ENTERIC COATED 81 MG TABLET.DR. PO SCH (08:00)
[2019-03-20] MEDS: PANTOPRAZOLE 40 MG TABLET. PO SCH (08:18)
[2019-03-20] MEDS: DOCUSATE SODIUM 100 MG CAPSULE PO SCH (08:18)
[2019-03-20] MEDS: POLYETHYLENE GLYCOL 3350 17 GM PACKET. PO SCH (08:18)
[2019-03-20] MEDS: FAMOTIDINE 20 MG TABLET PO SCH (08:18)
[2019-03-20] MEDS: CELECOXIB 100 MG CAPSULE PO SCH (08:18)
[2019-03-20] MEDS: MULTIVITAMIN with MINERAL TABLET. PO SCH (08:18)
[2019-03-20] MEDS: LIDOCAINE (700MG/PATCH) PATCH. TD SCH (08:19)
[2019-03-20 08:50] VITALS: BP 148/81
[2019-03-21] MEDS ORDERED: NON FORMULARY ITEM (Dulaglutide (Trulicity) 0.75 MG) SQ SCH (16:00)
== END 2019-03-20 09:33 | disposition short-term general hospital (02) | DRG 446 ==
LOC: ER 20:53 → 1 SOUTH 23:50
PROVIDERS: ADMIT Family Medicine; ATTEND Family Medicine
DX: K80.20 Calculus of gallbladder without cholecystitis without obstruction (principal); E03.9 Hypothyroidism, unspecified; E78.00 Pure hypercholesterolemia, unspecified; F03.90 Unspecified dementia, unspecified severity, without behavioral disturbance, psychotic disturbance, mood disturbance, and anxiety; I10 Essential (primary) hypertension; M19.90 Unspecified osteoarthritis, unspecified site; K57.90 Diverticulosis of intestine, part unspecified, without perforation or abscess without bleeding; E11.9 Type 2 diabetes mellitus without complications; J45.909 Unspecified asthma, uncomplicated; Z83.3 Family history of diabetes mellitus; E66.9 Obesity, unspecified; F41.9 Anxiety disorder, unspecified; G89.29 Other chronic pain; M54.5 Low back pain; Z88.8 Allergy status to other drugs, medicaments and biological substances; Z79.899 Other long term (current) drug therapy; Z96.651 Presence of right artificial knee joint; Z82.49 Family history of ischemic heart disease and other diseases of the circulatory system; Z90.710 Acquired absence of both cervix and uterus; Z68.37 Body mass index [BMI] 37.0-37.9, adult; Z90.5 Acquired absence of kidney
CPT/HCPCS: 36415; 74022; 74177; 76700; 78226; 80048; 80053; 80076; 80307; 81001; 82150; 82550; 82947; 83690; 84484; 84702; 85025; 85610; 85651; 85730; 93005; 94640; 96361; 96374; 96375; A9537; G0238; J1644; J1815; J1885; J2212; J2405; J3010; J3490; J7120; J7620; Q9966; Q9967; 99285-25

== ENCOUNTER → 2019-04-01 | Outpatient (CLI) | payer MEDICARE, OTHER ==
[2019-03-20 08:50] VITALS: BP 148/81
[~2019-04-01] MED LIST changes: +ATOR40TA59 PO; +CELE200C PO; +CHOL10003 PO; +DICL100G18 TP; +ESOM40CA PO; +ESTR0.5T PO; +GLIP5TAB10 PO; +LIDODERM PATCH 5% TP; +LUBI8CAP4 PO; +MULT1TAB52 PO; +NAPR220C4 PO
== END | disposition home or self-care (01) ==
LOC: LAB 08:12
PROVIDERS: ATTEND Internal Medicine Cardiovascular Disease
DX: E78.00 Pure hypercholesterolemia, unspecified (principal)
CPT/HCPCS: 80061

== ENCOUNTER → 2019-07-12 | Outpatient (CLI) | payer MEDICARE, OTHER ==
[2019-07-12 15:11] LABS: ALBUMIN 3.6 g/dL (3.4-5.0); CALCIUM 9.3 mg/dL (8.5-10.1); POTASSIUM 4.3 mmol/L (3.5-5.1); TOTAL BILIRUBIN 0.3 mg/dL (0.2-1.0); TOTAL PROTEIN 7.3 g/dL (6.4-8.2)
== END | disposition home or self-care (01) ==
LOC: LAB 13:39
PROVIDERS: ATTEND Internal Medicine Cardiovascular Disease
DX: E78.01 Familial hypercholesterolemia (principal)
CPT/HCPCS: 36415; 80053; 80061

== ENCOUNTER → 2020-05-17 | Outpatient (CLI) | payer MEDICARE, OTHER ==
[~2020-05-17] MED LIST changes: +MULT-445 PO; -MULT1TAB52 PO
[2020-05-17 12:50] VITALS: BP 156/74
== END ==
LOC: SURG 10:58
PROVIDERS: ATTEND Anesthesiology
DX: M47.813 Spondylosis without myelopathy or radiculopathy, cervicothoracic region (principal); M19.90 Unspecified osteoarthritis, unspecified site
CPT/HCPCS: 99213; G0463

== ENCOUNTER 2020-09-20 19:11 | Emergency (ER) | payer MEDICARE, OTHER ==
[~2020-09-20] VITALS: Ht 149.9 cm; Wt 80.0 kg
[~2020-09-20 19:11] MED LIST changes: -ALEN70TA6 PO; +ALEN70TA60 PO
--- NOTE | 2020-09-20 19:28 | PHYS DOC ---
Past History Past Medical History: Anxiety, Arthritis, Constipation, Diverticulitis, Diabetes, High Cholesterol, Hypertension, Other Past Surgical History: Knee Replacement, Lumbar Laminectomy, Other Alcohol Use: None Drug Use: None General Adult HPI: HPI: ".. I was in the kitchen my new baby..[place].. he 3 and 1/2 months.. was running through the kitchen,,.. And he knocked my legs out from under me I fell hard on this right hip nosebleeds pretty big he is 1/2 bulldog and half husky..." I hurting bad in my lower Rt. back..and hip..." Patient is a 65 year old female who presents with above hx and complaints of Rt. hip pain and lumbar sacral pain. Patient has not been able to bear weight in walking since the fall. Patient does have right lumbar muscle spasms and spasms into her right hip and obvious contusion. Bearing weight and rotation of the hip exacerbates pain. Distal sensation appears to be equal to left foot. Patient denies other injury in the fall. Patient has had multiple orthopedic surgeries almost yearly for the last 3 years. 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 And 3 years ago has had lumbar laminectomy approximately 2 years ago and 1 year ago had her right knee replacement. Patient has a medical history of arthritis, diverticulitis, elevated cholesterol, hypertension, anxiety, anemia. Patient no rmally follows Dr. Betancur. No recent changes in meds. No specific ill contacts or travel. No Covid risk factors currently. Review of Systems: Review of Systems: Constitutional: Denies fever or chills Eyes: Denies change in visual acuity HENT: Denies nasal congestion or sore throat Respiratory: Denies cough or shortness of breath Cardiovascular: Denies chest pain or edema GI: Denies abdominal pain, nausea, vomiting, bloody stools or diarrhea : Denies dysuria Musculoskeletal: Denies back pain or joint pain Integument: Denies rash Neurologic: Denies headache, focal weakness or sensory changes Endocrine: Denies polyuria or polydipsia Lymphatic: Denies swollen glands Psychiatric: Denies depression or anxiety Family History: Family History: Noncontributory to presentation Current Medications: Current Meds: See nursing for home meds Allergies: Allergies: Allergies Coded Allergies Type Severity Reaction Last Updated Verified erythromycin base Allergy Intermediate 03/17/19 Yes hydromorphone Allergy Intermediate 03/18/19 Yes morphine Allergy Intermediate 03/18/19 Yes Physical Exam: PE: Constitutional: in acute distress, non-toxic appearance. [] HENT: Normocephalic, atraumatic, bilateral external ears normal, oropharynx moist, no oral exudates, nose normal. [] Eyes: PERRLA, EOMI, conjunctiva normal, no discharge. [] Neck: Normal range of motion, no tenderness, supple, no stridor. [] Cardiovascular:Heart rate regular rhythm, no murmur, PMI to the left Lungs & Thorax: Bilateral breath sounds equal apex on auscultation [] Abdomen: Bowel sounds normal, soft, no tenderness, no masses, no pulsatile masses. Old surgery scars. Skin: Warm, dry, no erythema, no rash. Poor turgor Back: Right lumbar tenderness, lumbar surgery scar, no CVA tenderness. [] Extremities: Marked right hip tenderness, no cyanosis, no clubbing, ROM exacerbates pain in right hip, no edema. [] Right knee scar Neurologic: Alert and oriented X 3, guarded movement with right hip, has decreased plantar sensory function, no new focal deficits noted. [] Psychologic: Affect anxious, judgement normal, mood normal. [] EKG: EKG: My interpretation EKG shows a sinus rhythm at 64 bpm. No acute morphology [] Radiology/Procedures: Radiology/Procedures: [address] [address] IMAGING REPORT Signed PATIENT: LEXI JJ ACCOUNT: [id number] : 1955 LOCATION: ER AGE: 65 SEX: F EXAM STATUS: PRE ER ORD. PHYSICIAN: GARRETT LOCO MD REASON: Fall, dyspnea PROCEDURE: CHEST AP ONLY EXAM: CHEST ONE VIEW. HISTORY: Fall, dyspnea. COMPARISON: None. FINDINGS: A frontal view of the chest is obtained. There are no confluent infiltrates. There is no pneumothorax or pleural effusion. The heart is not enlarged. Spinal stimulator electrode is noted. IMPRESSION: 1. No confluent infiltrates. Electronically signed by: Danna Webb MD (09/20/2020 8:22 PM) [facility] DICTATED AND SIGNED BY: TERESE WEBB MD DATE: 09/20/202021 CC: PATY SMALL MD; GARRETT LOCO MD ~MTH0 [address] [place] [address] IMAGING REPORT Signed PATIENT: LEXI JJ ACCOUNT: [id number] : 1955 LOCATION: ER AGE: 65 SEX: F EXAM STATUS: PRE ER ORD. PHYSICIAN: GARRETT LOCO MD REASON: Fall in kitchen, lower back and posterior pelvic pain PROCEDURE: CT LUMBAR SPINE WO CONTRAST STUDY: 1. CT lumbar spine without contrast 2. CT pelvis without contrast INDICATION: Fall. Lower back and pelvic pain. COMPARISON: CT abdomen/pelvis 03/17/2019 TECHNIQUE: Axial CT imaging of the lumbar spine and pelvis performed without the use of intravenous contrast. Coronal and sagittal reformats were obtained. One or more of the following individualized dose reduction techniques were utilized for this examination: 1. Automated exposure control 2. Adjustment of the mA and/or kV according to patient size 3. Use of iterative reconstruction technique. FINDINGS: Lumbar spine: Dorsal fusion construct spanning L5-S1. Interbody fusion cage. Hardware positioning is no different. The hardware appears intact. No vertebral body or posterior element fracture is identified. No traumatic malalignment. No severe osseous central canal or foraminal stenosis is appreciated. Scattered degenerative changes have not significantly progressed. No soft tissue sequela of trauma. Absent right kidney. Partially imaged spinal cord stimulator device. Pelvis: Intact sacrum and coccyx. No acute fracture at either hip or hip malalignment. Moderate bilateral hip arthrosis. No presacral edema/hemorrhage. Several colonic diverticuli. The ventral pelvic wall is again seen to be diastatic with extension of small bowel through the defect. The visualized bowel is nonobstructed. Unchanged benign rounded focus with internal fat density anterior to the right psoas muscle. Absent uterus. IMPRESSION: Lumbar spine: 1. No acute fracture. 2. Unchanged surgical hardware at L5-S1. Pelvis: 1. No acute fracture or hip malalignment. 2. A few chronic observations detailed in the body the report. Electronically signed by: SALOMON FLORIAN MD (09/20/2020 8:26 PM) [facility] DICTATED AND SIGNED BY: SALOMON FLORIAN MD DATE: 09/20/202016 CC: PATY SMALL MD; GARRETT LOCO MD ~MTH0 0 [][address] [address] IMAGING REPORT Signed PATIENT: LEXI JJ ACCOUNT: [id number] : 1955 LOCATION: ER AGE: 65 SEX: F EXAM STATUS: PRE ER ORD. PHYSICIAN: GARRETT LOCO MD REASON: Fall in kitchen, lower back and posterior pelvic pain PROCEDURE: CT PELVIS WO CONTRAST STUDY: 1. CT lumbar spine without contrast 2. CT pelvis without contrast INDICATION: Fall. Lower back and pelvic pain. COMPARISON: CT abdomen/pelvis 03/17/2019 TECHNIQUE: Axial CT imaging of the lumbar spine and pelvis performed without the use of intravenous contrast. Coronal and sagittal reformats were obtained. One or more of the following individualized dose reduction techniques were utilized for this examination: 1. Automated exposure control 2. Adjustment of the mA and/or kV according to patient size 3. Use of iterative reconstruction technique. FINDINGS: Lumbar spine: Dorsal fusion construct spanning L5-S1. Interbody fusion cage. Hardware positioning is no different. The hardware appears intact. No vertebral body or posterior element fracture is identified. No traumatic malalignment. No severe osseous central canal or foraminal stenosis is apprecia linda. Scattered degenerative changes have not significantly progressed. No soft tissue sequela of trauma. Absent right kidney. Partially imaged spinal cord stimulator device. Pelvis: Intact sacrum and coccyx. No acute fracture at either hip or hip malalignment. Moderate bilateral hip arthrosis. No presacral edema/hemorrhage. Several colonic diverticuli. The ventral pelvic wall is again seen to be diastatic with extension of small bowel through the defect. The visualized bowel is nonobstructed. Unchanged benign rounded focus with internal fat density anterior to the right psoas muscle. Absent uterus. IMPRESSION: Lumbar spine: 1. No acute fracture. 2. Unchanged surgical hardware at L5-S1. Pelvis: 1. No acute fracture or hip malalignment. 2. A few chronic observations detailed in the body the report. Electronically signed by: SALOMON FLORIAN MD (09/20/2020 8:26 PM) [facility] DICTATED AND SIGNED BY: SALOMON FLORIAN MD DATE: 09/20/202016 CC: PATY SMALL MD; GARRETT LOCO MD ~MTH0 0 Heart Score: HEART Score for Chest Pain: HEART Score for Chest Pain Response (Comments) Value History Slighlty/Non-Suspicious 0 ECG Normal 0 Age >45 - < 65 1 Risk Factors 1 or 2 Risk Factors 1 Troponin < Normal Limit 0 Total 2 Risk Factors: Risk Factors: DM, Current or recent (<one month) smoker, HTN, HLP, family history of CAD, obesity. Risk Scores: Score 0 - 3: 2.5% MACE over next 6 weeks - Discharge Home Score 4 - 6: 20.3% MACE over next 6 weeks - Admit for Clinical Observation Score 7 - 10: 72.7% MACE over next 6 weeks - Early Invasive Strategies Course & Med Decision Making: Course & Med Decision Making Pertinent Labs and Imaging studies reviewed. (See chart for details) Ice packs as needed. Rest. Expect increased tenderness pain in right hip for the next 3 days before improvement. Take Tylenol and ibuprofen for pain. For marked pain may take Vicoprofen up to 4 times a day. May take Flexeril 5 mg up to 3 times a day for muscle spasms. Follow-up with Dr. Small. Return if any concerns Impression: 1. Fall 2. Contusion right hip and lumbar ( No obvious fracture Rt. hip or lumbar by CT) 3.Muscle spasms [] Dragon Disclaimer: Dragon Disclaimer: This electronic medical record was generated, in whole or in part, using a voice recognition dictation system. Departure Departure: Referrals: PATY SMALL MD (PCP) Scripts Cyclobenzaprine Hcl (CYCLOBENZAPRINE HCL) 5 Mg Tablet 5 MG PO tidprn for muscle spasms, #30 TAB Prov: GARRETT LOCO MD 09/20/20 Hydrocodone/Ibuprofen (HYDROCODONE-IBUPROFEN 7.5-200 ) 1 Each Tablet 1 TAB PO PRN Q6HRS PRN for PAIN, #30 TAB 0 Refills Prov: GARRETT LOCO MD 09/20/20 Dionte Disclaimer This chart was dictated in whole or in part using Voice Recognition software in a busy, high-work load, and often noisy Emergency Department environment. It may contain unintended and wholly unrecognized errors or omissions. GARRETT LOCO MD Sep 20, 2020 19:28
[2020-09-20] MEDS ORDERED: IV RINGERS SOLUTION,LACTATED 1,000 ML IV SCH (19:45)
--- NOTE | 2020-09-20 20:25 | RAD ---
EXAM: CHEST ONE VIEW. HISTORY: Fall, dyspnea. COMPARISON: None. FINDINGS: A frontal view of the chest is obtained. There are no confluent infiltrates. There is no pneumothorax or pleural effusion. The heart is not en larged. Spinal stimulator electrode is noted. IMPRESSION: 1. No confluent infiltrates. Electronically signed by: Danna Webb MD (09/20/2020 8:22 PM) [facility]
--- NOTE | 2020-09-20 20:29 | RAD ---
STUDY: 1. CT lumbar spine without contrast 2. CT pelvis without contrast INDICATION: Fall. Lower back and pelvic pain. COMPARISON: CT abdomen/pelvis 03/17/2019 TECHNIQUE: Axial CT imaging of the lumbar spine and pelvis performed without the use of intravenous c ontrast. Coronal and sagittal reformats were obtained. One or more of the following individualized dose reduction techniques were utilized for this examinat ion: 1. Automated exposure control 2. Adjustment of the mA and/or kV according to patient size 3. Use of iterative reconstruction technique. FINDINGS: Lumbar spine: Dorsal fusion construct spanning L5-S1. Interbody fusion cage. Hardware positioning is no different. The hardware appears intact. No vertebral body or posterior element fracture is identified. No traumatic malalignment. No severe o sseous central canal or foraminal stenosis is appreciated. Scattered degenerative changes have not si gnificantly progressed. No soft tissue sequela of trauma. Absent right kidney. Partially imaged spinal cord stimulator device . Pelvis: Intact sacrum and coccyx. No acute fracture at either hip or hip malalignment. Moderate bilateral hip arthrosis. No presacral edema/hemorrhage. Several colonic diverticuli. The ventral pelvic wall is again seen to be diastatic with extension of small bowel through the defect. The visualized bowel is nonobstructed. Unchanged benign rounded focus with internal fat density anterior to the right psoas muscle. Absent uterus. IMPRESSION: Lumbar spine: 1. No acute fracture. 2. Unchanged surgical hardware at L5-S1. Pelvis: 1. No acute fracture or hip malalignment. 2. A few chronic observations detailed in the body the report. Electronically signed by: SALOMON FLORIAN MD (09/20/2020 8:26 PM) [facility]
[2020-09-20] MEDS ORDERED: CYCL5TAB PO (20:38)
[2020-09-20] MEDS ORDERED: HYDR-1179 PO (20:38)
[2020-09-20 20:44] LABS: BASO % 0 % (0-3); EOS # 0.2 x10^3/uL (0.0-0.7); EOS % 3 % (0-3); HEMATOCRIT 42.7 % (36.0-47.0); HEMOGLOBIN 13.9 g/dL (12.0-15.5); LYMPH # 2.4 x10^3/uL (1.0-4.8); LYMPH % 26 % (24-48); MEAN CORPUSCULAR HEMOGLOBIN 29 pg (25-35); MEAN CORPUSCULAR HGB CONC 33 g/dL (31-37); MEAN CORPUSCULAR VOLUME 89 fL (79-100); MONO # 0.5 x10^3/uL (0.0-1.1); MONO % 5 % (0-9); NEUT # 6.1 x10^3uL (1.8-7.7); NEUT % 66 % (31-73); PLATELET COUNT 332 x10^3/uL (140-400); RED BLOOD COUNT 4.78 x10^6/uL (3.50-5.40); RED CELL DISTRIBUTION WIDTH 13.7 % (11.5-14.5); WHITE BLOOD COUNT 9.3 x10^3/uL (4.0-11.0)
[2020-09-20 20:46] LABS: CALCIUM 9.7 mg/dL (8.5-10.1); GFR 55.8; POTASSIUM 3.9 mmol/L (3.5-5.1)
[2020-09-20 20:51] LABS: BACTERIA,URINE 0 /HPF (0-FEW); BILIRUBIN,URINE NEG (NEG); CLARITY,URINE CLEAR; COLOR,URINE YELLOW; GLUCOSE,URINE NEG (NEG); NITRITE,URINE NEG (NEG); RBC,URINE OCC /HPF (0-2); SQUAMOUS EPITHELIAL CELL,UR FEW /LPF; UROBILINOGEN,URINE 0.2 mg/dL (0.2 mg/dL); WBC,URINE OCC /HPF (0-4)
[2020-09-20 20:58] LABS: ALBUMIN 3.6 g/dL (3.4-5.0); DIRECT BILIRUBIN 0.1 mg/dL (0.0-0.2); MAGNESIUM 1.9 mg/dL (1.8-2.4); TOTAL BILIRUBIN 0.5 mg/dL (0.2-1.0); TOTAL PROTEIN 7.3 g/dL (6.4-8.2)
[2020-09-20 21:10] VITALS: BP 132/59
--- NOTE | 2020-09-21 03:36 | EKG ---
[address] [address] Test Date: 2020-09-20 Test Time: 20:11:22 Pat Name: LEXI JJ Department: Room: Gender: F Rehabilitation Manager: LONG : 1955 Requested By: GARRETT LOCO Order Number: [id number] Reading MD: Measurements Intervals [place] Rate: 64 P: 34 NH: 152 QRS: 4 QRSD: 74 T: 28 QT: 406 QTc: 419 Interpretive Statements SINUS RHYTHM NORMAL ECG RI6.02 No previous ECG available for comparison
== END 2020-09-20 21:15 | disposition home or self-care (01) ==
LOC: ER 19:11
DX: S70.01XA Contusion of right hip, initial encounter (principal); S30.0XXA Contusion of lower back and pelvis, initial encounter; R20.2 Paresthesia of skin; F41.9 Anxiety disorder, unspecified; M19.90 Unspecified osteoarthritis, unspecified site; E11.9 Type 2 diabetes mellitus without complications; I10 Essential (primary) hypertension; E78.00 Pure hypercholesterolemia, unspecified; Z98.890 Other specified postprocedural states; Z90.89 Acquired absence of other organs; Z88.5 Allergy status to narcotic agent; Z88.6 Allergy status to analgesic agent; Z88.1 Allergy status to other antibiotic agents; W18.39XA Other fall on same level, initial encounter; Y93.89 Activity, other specified; Y92.89 Other specified places as the place of occurrence of the external cause; Y99.8 Other external cause status
CPT/HCPCS: 36415; 71045; 72131; 72192; 80048; 80076; 81001; 82550; 83735; 83880; 84484; 85025; 93005; 96361; 96374; 99285; J3010; J7120

== ENCOUNTER → 2020-11-06 | Outpatient (CLI) | payer MEDICARE, OTHER ==
[~2020-11-06] MED LIST changes: -ALEN70TA60 PO; +ALEN70TA71 PO; +CYCL5TAB PO; +HYDR-1179 PO
--- NOTE | 2020-11-06 13:55 | RAD ---
Exam: US DPLX VENOUS EXTREMITY LOWER RT Indication: Reason: RT KNEE SWELLING, RECENT FALL / Spl. Instructions: / History: Technique: Color-flow and pulsed wave duplex ultrasound with compression of venous structures of th e right lower extremity. Comparison: None Available. Findings: Duplex ultrasound with compression of the deep venous structures of the right lower extremi ty from the common femoral vein through the popliteal vein is negative for DVT. The posterior tibial and peroneal veins are segmentally visualized and patent where seen. Normal venous waveforms and augm entation are noted throughout. Impression: No evidence for DVT in the right lower extremity. Electronically signed by: Vini Smith MD (11/06/2020 1:52 PM) [facility]
== END ==
LOC: US 11:05
PROVIDERS: ATTEND Family Medicine
DX: I82.433 Acute embolism and thrombosis of popliteal vein, bilateral (principal)
CPT/HCPCS: 93971

== ENCOUNTER → 2022-02-08 | Outpatient (CLI) | payer MEDICARE, OTHER ==
[~2022-02-08] MED LIST changes: +CINN500C2 PO; +DIPH25CA58 PO; +GABA-586 PO
== END ==
LOC: LAB 11:07
PROVIDERS: ATTEND Internal Medicine Gastroenterology
DX: Z01.812 Encounter for preprocedural laboratory examination (principal); Z20.822 Contact with and (suspected) exposure to COVID-19; K22.70 Barrett's esophagus without dysplasia
CPT/HCPCS: U0003